=== PATIENT | female | born 1995 | race Two or more races ===

== ENCOUNTER 2018-10-27 12:40 | Outpatient (CLI) | payer OTHER ==
[2018-10-29] MEDS ORDERED: LUTERA-28 TABL1 EACH PO (10:55)
== END 2018-10-27 13:11 | disposition home or self-care (01) ==
LOC: LAB 12:40
DX: J30.89 Other allergic rhinitis (principal); J01.90 Acute sinusitis, unspecified

== ENCOUNTER 2018-11-02 05:58 | Day surgery (SDC) | payer OTHER ==
[~2018-11-02 05:58] MED LIST: LUTERA-28 TABL1 EACH PO
== END 2018-11-02 12:58 | disposition home or self-care (01) ==
LOC: CIR.AMB 05:58
PROVIDERS: Plastic Surgery
PROC: 0H0 Skin and Breast, Alteration (ICD-10-PCS; principal; 2018-11-02 10:15)
DX: N64.82 Hypoplasia of breast (principal)